=== PATIENT | female | born 1955 | race Caucasian/White ===

== ENCOUNTER → 2016-08-13 | Day surgery (SDC) | payer OTHER ==
--- NOTE | 2016-08-13 18:16 | OP ---
DATE OF OPERATION: 08/13/2016 PREOPERATIVE DIAGNOSIS: Abnormal left mammography. POSTOPERATIVE DIAGNOSIS: Abnormal left mammography. PROCEDURE: Left stereotactic needle biopsy. SURGEON: Nicole Ly M.D. ANESTHESIA: Local. COMPLICATIONS: None. This is a sterile procedure. INDICATION FOR PROCEDURE: Patient had screening mammogram that noted 2 areas of questionable calcifications in the posterior slightly lateral left breast, and micropuncture needle biopsy was released. The procedure discussed with her, including need for clip . PROCEDURE IN DETAIL: Patient was brought to [facility] [place], laid prone on the OR table. We used several different approaches to attempt to find these calcifications. Finally with the cranial approach I was able to see the more coarse calcifications and slightly bit more medial in the left breast. A was obtained. A target was chosen. There was a positive stroke margin. Using Betadine and 1% lidocaine, a 10-gauge Suros device was used to take several cores from this area, cores were sent to pathology in formalin. A bar-shaped clip was deployed in the area. Hemostasis showed direct pressure. I tried several other attempts several different ways to try to find the 2nd area of calcifications which were much fainter, but was unable to find them with the stereotactic technology. Therefore I explained to the patient that I would await the results of the biopsy I performed, and this 2nd area may need a wide localized excision. She will return to me in the office next week, and we will discuss this further then. NICOLE LY M.D. [id number]
--- NOTE | 2016-08-14 16:16 | PATH ---
Surgical Pathology Report Patient Name: ZHANG BOYD [facility]. Rec. #: [id number] /Age/Gender: 1955 (Age: 61) / F Account: [id number] Location: [facility] Taken: 08/13/2016 Received: 08/13/2016 Reported: 08/14/2016 Physicians: Nicole Rosado M.D. Specimen(s) Received A: LEFT BREAST SPECIMEN WITH CALCIFICATIONS B: LEFT BREAST SPECIMEN WITHOUT CALCIFICATIONS Clinical History Mammographic findings: Microcalcification, suspicious Final Diagnosis A. BREAST, LEFT, WITH CALCIFICATIONS, STEREOTACTIC BIOPSY: BENIGN BREAST TISSUE SHOWING FIBROADENOMATOID CHANGE WITH ASSOCIATED CALCIFICATION. B. BREAST, LEFT, WITHOUT CALCIFICATIONS, STEREOTACTIC BIOPSY: BENIGN BREAST TISSUE. Electronically Signed Danica Shipman M.D. Gross Description A. Received in formalin labeled "left breast with calcifications," is a 1.5 x 1.5 x 0.3 cm aggregate of multiple lucero-yellow, irregular to cylindrical portions of fibroadipose tissue. The formalin is filtered and the specimen is entirely submitted in one cassette. B. Received in formalin labeled "left breast without calcifications," is a 1.9 x 1.8 x 0.3 cm aggregate of multiple lucero-yellow, irregular to cylindrical portions of fibroadipose tissue. The formalin is filtered and the specimen is entirely submitted in one cassette. Time to formalin fixation: 5 minutes Total formalin fixation time: Approximately 7 hours. /08/13/201608/13/2016
== END | disposition home or self-care (01) ==
LOC: FMAMMOTONE 08:51
PROVIDERS: ATTEND Surgery
PROC: 0HBU3ZX Excision of Left Breast, Percutaneous Approach, Diagnostic (ICD-10-PCS; principal; 2016-08-13)
DX: N64.89 Other specified disorders of breast (principal); R92.8 Other abnormal and inconclusive findings on diagnostic imaging of breast
CPT/HCPCS: 19081; 88305-TC